=== PATIENT | male | born 1950 | race Caucasian/White ===

== ENCOUNTER 2019-04-26 09:39 | Emergency (ER) | payer OTHER ==
--- OUTSIDE RECORDS SUMMARY | 2019-04-26 09:41 | XMS REPORT ---
:1950 Author Organization [employer] Care Team Providers Name Role Phone Adrian Pavan Provider Role Unavailable Allergies, Adverse Reactions, Alerts Substance Reaction Event Type N.K.D.A. Info Not Available Non Drug Allergy Problems Problem Type Condition Code Onset Dates Condition Status Problem Hypertriglyceridemia E78.1 Active Problem Benign prostate hyperplasia N40.0 Active Problem Prediabetes R73.03 Active Assessment Primary osteoarthritis of right M17.11 Active knee Assessment Pain in joint of right knee M25.561 Active Assessment Pain, joint, knee, right M25.561 Active Assessment Contusion of right knee, initial S80.01XA Active encounter Problem Right sided sciatica M54.31 Active Problem Unilateral primary osteoarthritis, M17.11 Active right knee Problem Primary osteoarthritis of right M17.11 Active knee Problem Dizziness R42 Active Problem Benign essential HTN I10 Active Problem Pain, joint, knee, right M25.561 Active Problem 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
--- NOTE | 2019-04-26 11:31 | RAD REPORT ---
EXAM DESCRIPTION: RAD - Shoulder Left 2 View - 04/26/2019 10:21 am CLINICAL HISTORY: Fall, left shoulder pain COMPARISON: None. TECHNIQUE: Internal and external rotation views of the left shoulder were obtained. FINDINGS: There is no fracture or dislocation. AC joint degenerative changes are present with a mode rate size spur projecting from the inferior margin of the clavicle. Acromial humeral joint space is n arrowed. Chronic rotator cuff tear is not excluded. Calcifications along the superior margin of the a cromion are extracapsular and may be from prior muscle injury. No pathologic bone process. No suspicious soft tissue finding. IMPRESSION: Negative two-view left shoulder examination for fracture or acute finding Moderately prominent degenerative change at the AC joint with possible chronic supraspinatus rotator cuff tear
--- NOTE | 2019-04-26 11:31 | ER ---
Nurse's Notes [facility] Name: Eb Yang Age: 69 yrs Sex: Male : 1950 Arrival Date: 04/26/2019 Time: 09:42 Bed 13 Private MD: Diagnosis: Other sprain of shoulder joint Presentation: 04/26 10:01 Presenting complaint: Patient states: L shoulder pain with limited ROM after a ca1 mechanical fall last night. Transition of care: patient was not received from another setting of care. Onset of symptoms was April 25, 2019. Risk Assessment: Do you want to hurt yourself or someone else? Patient reports no desire to harm self or others. Initial Sepsis Screen: Does the patient meet any 2 criteria? No. Patient's initial sepsis screen is negative. Does the patient have a suspected source of infection? No. Patient's initial sepsis screen is negative. Care prior to arrival: None. 10:01 Method Of Arrival: Ambulatory ca1 10:01 Acuity: ROMARIO 4 ca1 Triage Assessment: 10:05 General: Appears in no apparent distress. comfortable, Behavior is calm, cooperative, ca1 appropriate for age. Pain: Denies pain. Neuro: Level of Consciousness is awake, alert, obeys commands, Oriented to person, place, time, situation, Appropriate for age. Derm: Skin is intact, is healthy with good turgor, Skin is pink, warm \T\ dry. Musculoskeletal: Circulation, motion, and sensation intact. Capillary refill < 3 seconds, Range of motion: limited in left shoulder. Historical: - Allergies: 10:05 No Known Allergies; ca1 - Home Meds: 10:05 Lisinopril Oral [Active]; Aspirin Oral [Active]; finasteride oral oral [Active]; ca1 - PMHx: 10:05 Hypertension; ca1 - PSHx: 10:05 Knee Surgery R; Appendectomy; ca1 - Immunization history:: Adult Immunizations up to date, Last tetanus immunization: unknown, Flu vaccine is up to date. - Social history:: Smoking status: Patient/guardian denies using tobacco. - Ebola Screening: : Patient negative for fever greater than or equal to 101.5 degrees Fahrenheit, and additional compatible Ebola Virus Disease symptoms Patient denies exposure to infectious person Patient denies travel to an Ebola-affected area in the 21 days before illness onset No symptoms or risks identified at this time. Screenin:06 Abuse screen: Denies threats or abuse. Denies injuries from another. Nutritional ca1 screening: No deficits noted. Tuberculosis screening: No symptoms or risk factors identified. Fall Risk Fall in past 12 months (25 points). Assessment: 10:06 Reassessment: SEE TRIAGE NOTES. ca1 11:27 Reassessment: Patient appears in no apparent distress at this time. Patient is alert, ca1 oriented x 3, equal unlabored respirations, skin warm/dry/pink. Vital Signs: 10:05 BP 113 / 64; Pulse 84; Resp 17 S; Temp 98.3(O); Pulse Ox 98% on R/A; Weight 93.44 kg ca1 (R); Height 5 ft. 10 in. (177.80 cm) (R); Pain 0/10; 11:38 BP 111 / 71; Pulse 81; Resp 17 S; Pulse Ox 99% on R/A; ca1 10:05 Body Mass Index 29.56 (93.44 kg, 177.80 cm) ca1 ED Course: 09:42 Patient arrived in ED. mr 10:01 Agustina Merrill, RN is Primary Nurse. ca1 10:02 Triage completed. ca1 10:05 Arm band placed on right wrist. ca1 10:06 Patient has correct armband on for positive identification. Bed in low position. Call ca1 light in reach. Side rails up X 1. Pulse ox on. NIBP on. Warm blanket given. 10:06 No provider procedures requiring assistance completed. Patient did not have IV access ca1 during this emergency room visit. 10:07 Patient has correct armband on for positive identification. Bed in low position. Call mh5 light in reach. Pulse ox on. NIBP on. 10:10 Cruzito Carroll PA is PHCP. jmm 10:10 Darrell Beebe MD is Attending Physician. jmm 10:23 XRAY Shoulder LEFT 2 view In Process Unspecified. EDMS 11:30 Pavan Campbell MD is Referral Physician. abnerm Administered Medications: No medications were administered Outcome: 11:30 Discharge ordered by . jmbee 11:39 Discharged to home ambulatory, with significant other. ca1 11:39 Condition: stable 11:39 Discharge instructions given to patient, Instructed on discharge instructions, follow up and referral plans. Demonstrated understanding of instructions, follow-up care. 11:39 Patient left the ED. ca1 Signatures: Dispatcher [employer] EDMS Cruzito Carroll PA PA jmm Rivera, Mary mr Viviana Ro [facility] Agustina Merrill RN RN ca1
--- NOTE | 2019-04-26 11:31 | EDPHYS ---
Physician Documentation [facility] Name: Eb Yang Age: 69 yrs Sex: Male : 1950 Arrival Date: 04/26/2019 Time: 09:42 Bed 13 Private MD: ED Physician Darrell Beebe HPI: 04/26 10:26 This 69 yrs old Male presents to ER via Ambulatory with complaints of jmm Shoulder Pain. 10:26 The patient or guardian complains of an injury, pain. Onset: The symptoms/episode jmm began/occurred acutely, last night. Modifying factors: the symptoms are alleviated by remaining still, The symptoms are aggravated by movement. Associated signs and symptoms: Pertinent negatives: chest pain, neck pain. This is a 69 year old male with a history of htn that presents to the ED with complaints left shoulder pain. Patient states he fell on his left side last night after tripping over a log. . Historical: - Allergies: 10:05 No Known Allergies; ca1 - Home Meds: 10:05 Lisinopril Oral [Active]; Aspirin Oral [Active]; finasteride oral oral [Active]; ca1 - PMHx: 10:05 Hypertension; ca1 - PSHx: 10:05 Knee Surgery R; Appendectomy; ca1 - Immunization history:: Adult Immunizations up to date, Last tetanus immunization: unknown, Flu vaccine is up to date. - Social history:: Smoking status: Patient/guardian denies using tobacco. - Ebola Screening: : Patient negative for fever greater than or equal to 101.5 degrees Fahrenheit, and additional compatible Ebola Virus Disease symptoms Patient denies exposure to infectious person Patient denies travel to an Ebola-affected area in the 21 days before illness onset No symptoms or risks identified at this time. ROS: 10:29 Constitutional: Negative for fever, chills, and weight loss, Cardiovascular: Negative jmm for chest pain, palpitations, and edema, Respiratory: Negative for shortness of breath, cough, wheezing, and pleuritic chest pain. 10:29 MS/extremity: Positive for injury or acute deformity, pain. 10:29 All other systems are negative. Exam: 10:29 Constitutional: This is a well developed, well nourished patient who is awake, alert, jmm and in no acute distress. Head/Face: atraumatic. Eyes: EOMI, no conjunctival erythema appreciated ENT: Moist Mucus Membranes Neck: Trachea midline, Supple Chest/axilla: Normal chest wall appearance and motion. Cardiovascular: Regular rate and rhythm. No edema appreciated Respiratory: Normal respirations, no respiratory distress appreciated Abdomen/GI: Non distended, soft Back: Normal ROM Skin: General appearance color normal 10:29 Musculoskeletal/extremity: mild pain on palpation of the left deltoid. Pain is elicited on abduction. Full merchandising manager strength. No obvious deformity is appreciated. NVI. 10:29 Skin: Appearance: Color: normal in color. 10:29 Neuro: Orientation: is normal, Mentation: is normal, Memory: is normal. 10:29 Psych: Behavior/mood is pleasant, cooperative. Vital Signs: 10:05 BP 113 / 64; Pulse 84; Resp 17 S; Temp 98.3(O); Pulse Ox 98% on R/A; Weight 93.44 kg ca1 (R); Height 5 ft. 10 in. (177.80 cm) (R); Pain 0/10; 11:38 BP 111 / 71; Pulse 81; Resp 17 S; Pulse Ox 99% on R/A; ca1 10:05 Body Mass Index 29.56 (93.44 kg, 177.80 cm) ca1 MDM: 10:19 Patient medically screened. [facility] 10:32 Data reviewed: vital signs, nurses notes. [facility] 11:28 Counseling: I had a detailed discussion with the patient and/or guardian regarding: the [facility] historical points, exam findings, and any diagnostic results supporting the discharge/admit diagnosis, radiology results, the need for outpatient follow up, to return to the emergency department if symptoms worsen or persist or if there are any questions or concerns that arise at home. ED course: X-ray does not appear to show a fracture. Patient is alert and non toxic in appearance in the ED. Advised to follow up with ortho for reevaluation. Patient understood and agrees with the plan of care. . 04/26 10:08 Order name: XRAY Shoulder LEFT 2 view; Complete Time: 14:55 ca1 Administered Medications: No medications were administered Disposition: 14:59 Co-signature as Attending Physician, Darrell Beebe MD. rn Disposition: 04/26/19 11:30 Discharged to Home. Impression: Other sprain of shoulder joint. - Condition is Stable. - Discharge Instructions: Shoulder Sprain. - Prescriptions for orphenadrine citrate 100 mg Oral Tablet Sustained Release - take 1 tablet by ORAL route 2 times per day As needed; 20 tablet. - Medication Reconciliation Form, Thank You Letter, Antibiotic Education, Prescription Opioid Use form. - Follow up: Pavan Campbell MD; When: 2 - 3 days; Reason: Recheck today's complaints, Continuance of care, Re-evaluation by your physician. Signatures: Dispatcher [employer] EDCruzito Chanel PA PA jmm Nieto, Roman, MD MD rn Acob, Agustina RN RN ca1 Corrections: (The following items were deleted from the chart) 11:39 11:30 04/26/2019 11:30 Discharged to Home. Impression: Other sprain of shoulder joint. ca1 Condition is Stable. Forms are Medication Reconciliation Form, Thank You Letter, Antibiotic Education, Prescription Opioid Use. Follow up: Dr. Pavan Campbell; When: 2 - 3 days; Reason: Recheck today's complaints, Continuance of care, Re-evaluation by your physician. anali
[2019-04-26 11:51] VITALS: BP 111/71; O2SAT 99
[2019-04-26 11:57] VITALS: TEMP 98.3
== END 2019-04-26 11:39 | disposition home or self-care (01) ==
LOC: ER 09:39
DX: S43.402A Unspecified sprain of left shoulder joint, initial encounter (principal); W01.0XXA Fall on same level from slipping, tripping and stumbling without subsequent striking against object, initial encounter; Y93.9 Activity, unspecified; Y92.9 Unspecified place or not applicable; I10 Essential (primary) hypertension
CPT/HCPCS: 99283